=== PATIENT | male | born 1940 | race Caucasian/White ===

== ENCOUNTER → 2018-01-28 06:15 | Outpatient (CLI) | payer MEDICARE, SELFPAY ==
--- NOTE | 2018-01-28 09:39 | STRESSREP ---
Stress Test Report Exercise myocardial perfusion stress test. 78-year-old man with a history of syncope. Medications: Norvasc Flomax lisinopril. Stress protocol: Resting EKG demonstrates sinus rhythm with a rate of 62 bpm incomplete right bundle branch block is noted as well as premature ventricular complexes. The patient exercised according to the regular Kirk protocol for total duration of 6 minutes. The patient completed stage II of the Kirk protocol the maximum heart rate attained was 137 bpm which was 97% of maximum predicted heart rate the maximum workload attained was 7 metabolic equivalents. Patient maintained sinus rhythm throughout the recording. The resting blood pressure is 120/60 mmHg with a peak blood pressure 146/60 mmHg rate pressure product was 20,000. No clinical angina was noted the test was terminated due to shortness of breath. Myocardial perfusion protocol. 11.3 mCi of technetium 99m sestamibi was injected at rest. The patient exercised according to the Kirk protocol for 6 minutes and at peak exercise 33.4 mCi of technetium 99m sestamibi was injected stress images were obtained stress and rest images were reconstructed and compared in the short axis vertical long and horizontal long axis. Gated images were also obtained. Perfusion SPECT analysis: Review of the stress images demonstrate GI attenuation artifact noted. The anterior septal wall, anterior wall and lateral wall appear to be well perfused. There is a perfusion defect noted involving the inferior wall but there is also significant GI attenuation artifact noted. The stress and resting images do not demonstrate any differential to suggest ischemia. A previous inferior infarct cannot be completely excluded. Gated SPECT analysis: The gated ejection fraction is 64%. Conclusion: Exercise myocardial perfusion stress test with no evidence of ischemia. Previous inferior infarct cannot be excluded.
== END ==
PROVIDERS: Family Provider Family Medicine; PCP Family Medicine; Visit Provider Internal Medicine Cardiovascular Disease
DX: I25.10 Atherosclerotic heart disease of native coronary artery without angina pectoris (principal); I49.3 Ventricular premature depolarization; R55 Syncope and collapse
CPT/HCPCS: 78452; 93017; A9500; A4216

== ENCOUNTER → 2018-06-11 11:17 | Outpatient (CLI) | payer MEDICARE, SELFPAY ==
[2018-06-11 11:47] LABS: Absolute Lymphocyte Count 2.65 X10^3/ul (0.83-4.51); Absolute Neutrophil Count 2.4 X10^3/uL (2.0-7.7); Basophil# 0.02 X10^3/uL; Basophil% 0.4 % (0-1); Eosinophil# 0.07 X10^3/uL; Eosinophils% 1.2 % (0-5); Hemoglobin 10.7 g/dl (13.0-16.5); Lymphocyte # 2.65 X10^3/ul (4.0); Lymphocyte % 46.8 % (19-41); Mean Corp Hgb Conc 32.4 g/gl (32-36); Mean Corpuscular Hgb 29.5 pg (27.0-32.0); Mean Corpuscular Volume 90.9 fL (80-94); Mean Platelet Vol. 9.6 fl (6.2-12.0); Monocyte# 0.47 X10^3/uL; Monocyte% 8.3 % (0-10); Neutrophil # 2.44 X10^3/uL (2.7-7.7); Neutrophil % 43.1 % (47-70); POSITIVE COUNT NO; POSITIVE DIFFERENTIAL NO; POSITIVE MORPHOLOGY NO; Platelet Count 141 K/mm3 (150-450); RBC Distribution Width SD 42.1 fl (35.1-43.9); Red Blood Count 3.63 M/mm3 (4.6-6.2); White Blood Count 5.7 K/mm3 (4.4-11.0)
== END ==
PROVIDERS: PCP Family Medicine; Visit Provider Internal Medicine Hematology & Oncology
DX: D50.9 Iron deficiency anemia, unspecified (principal)
CPT/HCPCS: 85025

== ENCOUNTER 2020-11-10 12:17 | Emergency (ER) | payer MEDICARE, SELFPAY ==
[2020-11-10 12:18] VITALS: BP 157/66; PULSE 80; RESP 18; TEMP 36.7; O2SAT 98; BMI 21.2
--- NOTE | 2020-11-10 12:51 | CT_ITS ---
STUDY: CT ABDOMEN AND PELVIS WITHOUT CONTRAST REASON FOR EXAM: Male, 80 years old. Haematuria. Constipation. The patient has a history of lymphoblastic lymphoma. RADIATION DOSAGE (If Supplied By Facility): CTDIvol = ( 7.59 ) mGy, DLP = ( 365.85 ) mGycm TECHNIQUE: Transaxial images were obtained from the dome of the diaphragm to the symphysis pubis without oral contrast, and without intravenous contrast. Sagittal and coronal images were reconstructed. Individualized dose optimization techniques were used for this CT. COMPARISON: None. FINDINGS: Small bilateral pleural effusions. Coronary artery calcification. There is 1.8 cm cyst in the posterior aspect of the right lobe of the liver. Adjacent to this, there is a similar appearing 2 cm cyst in the peripheral inferior aspect of the right lobe of the liver. The patient is status post cholecystectomy. Normal spleen. Normal pancreas. Normal bilateral adrenal glands. Normal right kidney. 2.7 cm cyst in the lower pole of the left kidney. Normal visualized stomach. Normal small intestine. Moderate amount of fecal material is seen in the colon. The appendix is visualized and appears normal. There is diffuse atherosclerotic calcification of the abdominal aorta and its major visceral branches, without a demonstrated aneurysm. Normal inferior vena cava. Normal retroperitoneum. The urinary bladder is distended. Mild degree of diffuse bladder wall thickening. There is enlargement of the prostate gland. The prostate measures 5.3 cm x 6.2 cm. This causes indentation at the bladder base. Questionable 2.7 cm x 2.9 cm polypoid mass at the base of the bladder. There is a left-sided inguinal hernia containing adipose tissue. There are degenerative changes of the visualized lumbar spine. Almost complete collapse of the L3 vertebrae. CT/Abdomen/Pelvis without Cont IMPRESSION: Prostatic enlargement with indentation at the bladder base. Impression 1 polypoid lesion at the base of the bladder. Hepatic cysts. Electronically Signed: Lamont Conde MD at 13:41 EDT , Service support ,
--- NOTE | 2020-11-10 12:55 | ED.DCSUM_ITS ---
History of Present Illness Chief Complaint: Constipation Detail of Chief Complaint: Constipation and hematuria Informant: Patient Onset: Days Context: Gradual Onset Narrative: Patient reported has not had a bowel movement in the last 7 or 8 days. He was seen by Dr. Maloney earlier this week and mentioned his constipation. He was given suppositories and a prescription for magnesium citrate. It appears the patient took the Dulcolax suppositories and tried milk of magnesia without improvement. Yesterday he noted some gross hematuria although denies dysuria. Patient was seen at the office where urinalysis did not show sign of infection. Because symptoms persisted today patient was sent to the emergency room. Patient states he has been passing gas. He denies any prior abdominal surgeries. He is currently on Xarelto for paroxysmal A. fib but states he held his dose last night because of hematuria. - Past Medical History (1) Lymphoblastic lymphoma Status: Chronic (2) Atrial fibrillation Status: Chronic Past Medical History - Allergies and Home Meds Allergies/Adverse Reactions: Allergies morphine Adverse Reaction (Verified 11/10/20 12:21) Other anxiety Primary Care Physician: Lenny Vail MD [Primary Care Provider] - Prior records reviewed: Yes Smoking Status: Never smoker Review of Systems General: Denies: Chills, Fever Eyes: Denies: Visual changes - bilaterally ENT: Denies: Bilateral ear pain Cardiovascular: Denies: Chest pain Respiratory: Denies: Dyspnea, Cough Gastrointestinal: Reports: Constipation. Denies: Abdominal pain, Vomiting Genitourinary: Reports: Hematuria. Denies: Dysuria Musculoskeletal: Denies: Swelling, Extremity Pain Skin: Denies: Rash Neurological: Denies: Headache Hematologic: Denies: Easy bruising, Easy bleeding Allergy: Denies: Uticaria Physical Exam Vital Signs/Narrative: Vital Signs Temp Pulse Resp BP Pulse Ox 11/10/20 12:18 98.0 F 80 18 157/66 H 98 Inital Vital Signs reviewed: Yes General: Well nourished, Well developed Head: Normocephalic Neck: Supple Cardiovascular: Regular rate, Regular rhythm Respiratory: No distress, CTA bilaterally Abdomen: Soft, Nontender, Hypoactive bowel sounds Extremities: Nontender Skin: Normal color Neurological: Alert, Oriented x3 Psychological: Normal affect Diagnostic/Tx/Re-eval Impressions Abdomen/Pelvis CT 11/10/20 12:51 IMPRESSION: Prostatic enlargement with indentation at the bladder base. Impression 1 polypoid lesion at the base of the bladder. Hepatic cysts. Electronically Signed: Lamont Conde MD at 13:41 EDT , Service support , 11/10/20 12:51 Abdomen/Pelvis without Cont [CT] Stat Laboratory Results 11/10/20 11/10/20 11/10/20 13:05 13:05 13:05 WBC 2.6 L RBC 3.63 L Hgb 10.2 L Hct 33.0 L MCV 90.9 MCH 28.1 MCHC 30.9 L RDW Std Deviation 49.8 H RDW Coeff of Reba 14.9 H Plt Count 217 MPV 9.2 Immature Gran % (Auto) 1.600 H Neut % (Auto) 68.1 Lymph % (Auto) 22.1 [place] % (Auto) 5.8 Eos % (Auto) 1.2 Baso % (Auto) 1.2 H Absolute Neuts (auto) 1.8 L Absolute Lymphs (auto) 0.57 L Nucleated RBC % 0 Differential Comment S Diff Path Review May foll PT 13.1 INR 1.1 APTT 29.6 Sodium 133 L Potassium 3.7 Chloride 101 Carbon Dioxide 26.0 Anion Gap 6 BUN 21 H Creatinine 1.01 Estim Creat Clear Calc 54.47 Est GFR (MDRD) Af Amer 91 Est GFR (MDRD) Non-Af 75 BUN/Creatinine Ratio 20.8 H Glucose 86 Calcium 8.7 Urine Color Urine Clarity Urine pH Ur Specific [place] Urine Protein Urine Glucose (UA) Urine Ketones Urine Occult Blood Urine Nitrite Urine Bilirubin Urine Urobilinogen Ur Leukocyte Esterase Urine RBC Urine WBC Ur Squamous Epith Cells Urine Bacteria Urine Mucus 11/10/20 13:40 WBC RBC Hgb Hct MCV MCH MCHC RDW Std Deviation RDW Coeff of Reba Plt Count MPV Immature Gran % (Auto) Neut % (Auto) Lymph % (Auto) [place] % (Auto) Eos % (Auto) Baso % (Auto) Absolute Neuts (auto) Absolute Lymphs (auto) Nucleated RBC % Differential Comment Diff Path Review PT INR APTT Sodium Potassium Chloride Carbon Dioxide Anion Gap BUN Creatinine Estim Creat Clear Calc Est GFR (MDRD) Af Amer Est GFR (MDRD) Non-Af BUN/Creatinine Ratio Glucose Calcium Urine Color [place] Urine Clarity Cloudy Urine pH 7.0 Ur Specific [place] 1.010 Urine Protein 30 H Urine Glucose (UA) Normal Urine Ketones 50 H Urine Occult Blood 250 H Urine Nitrite Negative Urine Bilirubin Negative Urine Urobilinogen Normal Ur Leukocyte Esterase 25 H Urine RBC > 100 SEEN Urine WBC 0-5 SEEN Ur Squamous Epith Cells 0-5 SEEN Urine Bacteria RARE Urine Mucus 0 SEEN - Medical Decision Making Test results discussed with patient at bedside. I spoke with Dr. Fisher, on- call for urology. He reviewed the patient's CT scan and feels that the questionable mass on the CT read is actually the prostate pushing up into the bladder. He asked the patient be started on finasteride and hold his Xarelto until he does not note any more hematuria. Patient will also be written for magnesium citrate to clear the stool noted in his abdomen. Stool does appear to be fairly high and I do not think a enema will be beneficial. ED Disposition - Plan for ED Patient: Disposition: Home or Assisted Living Diagnosis: Hematuria, Constipation Instructions: ED Constipation (Adult), ED Hematuria Prescriptions: Magnesium Citrate [Citrate Of Magnesia] 150 ml PO Q4H PRN PRN #1 bottle PRN Reason: Constipation Transmission Status: Pending to [facility] Finasteride 5 mg PO DAILY #30 tablet Transmission Status: Pending to [facility] Referrals: Lenny Vail MD [Primary Care Provider] - Ahmet Fisher MD [STAFF PHYSICIAN] - 1 Week
[2020-11-10 13:18] LABS: Absolute Lymphocyte Count 0.57 X10^3/uL (0.83-4.51); Absolute Neutrophil Count 1.8 X10^3/uL (2.0-7.7); Basophil# 0.03 X10^3/uL; Basophil% 1.2 % (0-1); Eosinophil# 0.03 X10^3/uL; Eosinophils% 1.2 % (0-5); Hemoglobin 10.2 g/dL (13.0-16.5); Lymphocyte # 0.57 X10^3/ul (0.83-4.51); Lymphocyte % 22.1 % (19-41); Mean Corp Hgb Conc 30.9 g/dL (32-36); Mean Corpuscular Hgb 28.1 pg (27.0-32.0); Mean Corpuscular Volume 90.9 fL (80-94); Mean Platelet Vol. 9.2 fl (6.2-12.0); Monocyte# 0.15 X10^3/uL; Monocyte% 5.8 % (0-10); NRBC Flagged by Analyzer 0 % (0-5); Neutrophil # 1.76 X10^3/uL (2.7-7.7); Neutrophil % 68.1 % (47-70); POSITIVE DIFFERENTIAL YES; Platelet Count 217 K/mm3 (150-450); RBC Distribution Width CV 14.9 % (11.6-14.6); RBC Distribution Width SD 49.8 fl (35.1-43.9); Red Blood Count 3.63 M/mm3 (4.6-6.2); White Blood Count 2.6 K/mm3 (4.4-11.0)
[2020-11-10 13:19] LABS: Differential Indicated SCAN CRITERIA MET
[2020-11-10 13:27] LABS: International Normalized Ratio 1.1; Prothrombin Time (Protime)PT. 13.1 SECONDS (11.7-14.9)
[2020-11-10 13:28] LABS: Partial Thromboplast Time 29.6 Seconds (24.1-36.2)
[2020-11-10 13:36] LABS: Anion Gap 6 (5-15); BUN 21 mg/dL (7-18); BUN/Creat Ratio 20.8 RATIO (10-20); Calcium,Total 8.7 mg/dL (8.5-10.1); Chloride 101 mmol/L (98-107); Creatinine, Serum 1.01 mg/dL (0.70-1.30); EST Glomerular Filtration Rate 75 mL/min (>60); Est Glom Filt Rate - Afr Amer 91 mL/min (>60); Estimated Creatinine Clearance 54.47 ml/min; Glucose 86 mg/dL (74-106); Potassium 3.7 mmol/L (3.5-5.1); Sodium Level 133 mmol/L (136-145)
[2020-11-10 13:43] LABS: Mucous, Urine 0 SEEN /hpf (<or=2+)
[2020-11-10 13:49] LABS: Color, Urine Amber (Yellow); Glucose, Dipstick Normal (Normal); Ketone-Dipstick 50 mg/dl (Negative); Leukocyte Esterase-Dipstick 25 /ul (Negative); Nitrite-Dipstick Negative (Negative); Occult Blood-Urine 250 /ul (Negative); Protein-Dipstick 30 mg/dl (Negative); Urine Bilirubin Dipstick Negative (Negative); Urine Clarity Cloudy (Clear); Urine Urobilinogen Normal (Normal)
[2020-11-10 13:49] LABS: Differential Comment S
[2020-11-10 13:52] LABS: Red Blood Cells-Urine > 100 SEEN /hpf (0-5); Squamous Epithelial Cells - UA 0-5 SEEN /hpf (0-5); White Blood Cells 0-5 SEEN /hpf (0-5)
[2020-11-10 13:53] LABS: Bacteria RARE /hpf (None Seen)
[2020-11-11 14:06] LABS: Pathologist Review Reviewed
== END 2020-11-10 14:46 | disposition home or self-care (01) ==
PROVIDERS: Emergency Provider Emergency Medicine; PCP Family Medicine
DX: R31.9 Hematuria, unspecified (principal); K59.00 Constipation, unspecified; I48.0 Paroxysmal atrial fibrillation; C83.50 Lymphoblastic (diffuse) lymphoma, unspecified site; Z79.01 Long term (current) use of anticoagulants; Z79.899 Other long term (current) drug therapy
CPT/HCPCS: 74176; 80048; 81001; 85025; 85610; 85730; 99283; A4216

== ENCOUNTER → 2021-05-02 | Outpatient (CLI) | payer MEDICARE, SELFPAY ==
--- NOTE | 2021-05-02 10:30 | LES_PTH ---
PATIENT: ALVARO TSANG LOC: [facility] U#:[id number] AGE/SX: 81/M ROOM: RE05/02/[address]: Dr. Aniket Castillo MD : [id number] BED: DIS: 05/02/2021 SPEC #: [id number] RECD: 05/02/21 15:07 STATUS: ANTONIETA REMan #: [id number] LAM: 05/02/21 10:[address]: Aniket Castillo DEPT: SURGICAL PATHOLOGY RECD BY: Alfreda Melendez ENTERED: 05/03/21 08:46 SP TYPE: Lesion OTHR DR: Dr. Lenny Vail MD Tissues: Skin of external ear, NOS Procedures: Surgery Specimen Level IV HEADER OPERATION: Right ear biopsy PRE-OP DIAGNOSIS: Cholesteatoma right ear TISSUE SUBMITTED: Right ear biopsy MICROSCOPIC DIAGNOSIS Right ear, biopsy: A piece of fibroconnective tissue with acute inflammation. See comment. SJ:fiordaliza 05/04/2021 COMMENT Changes consistent with cholesteatoma are not seen. Clinical correlation and appropriate follow up are necessary. MICROSCOPIC DESCRIPTION Slides are reviewed. GROSS DESCRIPTION Received in fixative is one container labeled with the patient's name and designated right ear biopsy. The specimen consists of a piece of jason soft tissue measuring 0.7 x 0.4 x 0.1 cm. The specimen bisected and submitted entirely in one cassette. / ZOYA:fiordaliza 05/03/21 TC:2 CPT: 72932
== END | disposition home or self-care (01) ==
LOC: LABSPEC 15:52
PROVIDERS: PCP Family Medicine; Referring Provider Otolaryngology Otolaryngology/Facial Plastic Surgery; Visit Provider Otolaryngology Otolaryngology/Facial Plastic Surgery
DX: H71.91 Unspecified cholesteatoma, right ear (principal)
CPT/HCPCS: 88305

== ENCOUNTER → 2021-05-09 14:01 | Outpatient (CLI) | payer MEDICARE, SELFPAY ==
--- NOTE | 2021-05-09 14:03 | CT_ITS ---
INDICATION: CHOLESTEATOMA RT MASTOID EXAMINATION: CT IAC TEMPORAL BONES - CT IACs W/O Contrast Injection TECHNIQUE:Routine noncontrast CT protocol was performed of the internal auditory canals and temporal bones. 2-D reformats were performed by the technologist. A radiation dose optimization technique was used for this scan. IV Contrast dosage and agent: None. COMPARISON: None. FINDINGS: RIGHT SIDE: No fracture. SUPERFICIAL SOFT TISSUES: Unremarkable. MASTOID AIR CELLS: Partial opacification of the inferior mastoid air cells. EXTERNAL AUDITORY CANALS: Soft tissue density is seen within the external auditory canal extending into the tympanic membrane. Minimal soft tissue is also seen in the roof of the attic of the middle ear with involvement of the internal ossicles. MIDDLE EAR CAVITIES: Well aerated. Ossicles and scutum intact. INTERNAL AUDITORY CANALS: Unremarkable bilateral internal auditory canals. No osseous erosion or widening of the canal. INNER EAR: Unremarkable cochlea, vestibule and semicircular canals. LEFT SIDE: No fracture. SUPERFICIAL SOFT TISSUES: Unremarkable. MASTOID AIR CELLS: Well aerated, unremarkable. EXTERNAL AUDITORY CANALS: Clear. MIDDLE EAR CAVITIES: Well aerated. Ossicles and scutum intact. INTERNAL AUDITORY CANALS: Unremarkable bilateral internal auditory canals. No osseous erosion or widening of the canal. INNER EAR: Unremarkable cochlea, vestibule and semicircular canals. VISUALIZED BRAIN AND POSTERIOR FOSSA: Cerebello-pontine angles are unremarkable. CT/Orb Sella Post Fossa Ear w/o IMPRESSION: Soft tissue density in the right external auditory canal extending into the region of the tympanic membrane and the attic of the right middle ear canal with involvement of the ossicles. Partial opacification of the right mastoid air cells. Electronically Signed: Lamont Conde MD at 15:16 EDT , Service support ,
== END ==
PROVIDERS: PCP Family Medicine; Referring Provider Otolaryngology Otolaryngology/Facial Plastic Surgery; Visit Provider Otolaryngology Otolaryngology/Facial Plastic Surgery
DX: H71.21 Cholesteatoma of mastoid, right ear (principal)
CPT/HCPCS: 70480

== ENCOUNTER 2021-09-22 17:52 | Emergency (ER) | payer MEDICARE, SELFPAY ==
[2021-09-22] VITALS (8 sets, daily range): BP systolic 111–149; BP diastolic 79–123; PULSE 123–152; RESP 17–24; TEMP 36.1–36.9; O2SAT 94–100; BMI 19.5
--- NOTE | 2021-09-22 17:57 | CT_ITS ---
STUDY: CT CERVICAL SPINE WITHOUT CONTRAST REASON FOR EXAM: Male, 81 years old. fall, head injury RADIATION DOSAGE (If Supplied By Facility): CTDIvol = ( 12.16 ) mGy, DLP = ( 252.71 ) mGycm TECHNIQUE: High resolution transaxial imaging was performed without contrast material. Sagittal and coronal images were reconstructed. Individualized dose optimization techniques were used for this CT. COMPARISON: None FINDINGS: Normal craniovertebral junction. Normal anterior atlantoaxial articulation. Normal odontoid process. Normal cervical lordosis. Normal vertebral bodies and posterior osseous elements. C2-3: Normal endplates. Normal disc height and tiny central disc protrusion.. Normal central canal and intervertebral neuroforamina. C3-4: Normal endplates. Normal disc height and morphology. Normal central canal and mild bilateral neuroforaminal stenosis secondary to bony hypertrophy. C4-5: Normal endplates. Normal disc height and morphology. Normal central canal. Moderate bilateral neuroforaminal stenosis secondary to bony hypertrophy C5-6: Narrowed disc space and endplate spurring. Normal central canal. Severe left neuroforaminal stenosis and mild narrowing on the right secondary to bony hypertrophy.. C6-7: Narrowed disc space and endplate spurring. Normal central canal. Severe bilateral neuroforaminal stenosis secondary to bony hypertrophy C7-T1: Normal endplates. Normal disc height and morphology. Normal central canal and intervertebral neuroforamina. Normal visualized soft tissue structures. CT/Spine Cervical without Contras IMPRESSION: No evidence for acute fracture or subluxation. Moderate spondylosis most severe at C5-6 and C6-7. Electronically Signed: Gilberto Bunch MD at 18:38 EST ,
--- NOTE | 2021-09-22 17:58 | CT_ITS ---
STUDY: CT BRAIN WITHOUT CONTRAST REASON FOR EXAM: Male, 81 years old. head truama RADIATION DOSAGE (If Supplied By Facility): CTDIvol = ( 44.99 ) mGy, DLP = ( 880.47 ) mGycm TECHNIQUE: Transaxial CT imaging of the brain was performed without administration of intravenous contrast material. Individualized dose optimization techniques were used for this CT. COMPARISON: No relevant priors. FINDINGS: Normal soft tissue structures. Normal calvarium. Mild atrophy and periventricular white matter ischemic changes.. Normal basal ganglia and thalami. Normal brainstem. Normal cerebellum. There is a large acute parenchymal hematoma in the left temporal and frontal lobes measuring approximately 5.4 x 5.5 cm in association with acute subarachnoid and intraventricular hemorrhage.. There is mass effect upon the left lateral ventricle approximately 6 mm left to right midline shift and mild dilatation of the right lateral ventricle. There is also very mild impingement upon the left ventral brainstem There are no findings of an acute ischemic infarction. Postoperative changes of the orbits. Large mucous retention cyst in left maxillary sinus. Mild mucosal thickening right maxillary and bilateral ethmoid sinuses. CT/Brain/Head without Contrast IMPRESSION: Large acute left frontal temporal parenchymal hematoma producing left to right midline shift and dilatation of right lateral ventricle as well as mild impingement upon the brainstem.. There is associated subarachnoid hemorrhage and intra-ventricular extension Electronically Signed: Gilberto Bunch MD at 18:36 EST ,
--- NOTE | 2021-09-22 17:59 | EKG12_ITS ---
Test Reason : UNRESPONSIVE Blood Pressure : / mmHG Vent. Rate : 130 BPM Atrial Rate : 130 BPM P-R Int : 184 ms QRS Dur : 132 ms QT Int : 354 ms P-R-T Axes : 038 -87 092 degrees QTc Int : 520 ms Sinus tachycardia with Premature supraventricular complexes and with occasional Premature ventricular complexes Left axis deviation Right bundle branch block Inferior infarct , age undetermined Abnormal ECG Confirmed by GUMARO PHILLIPS, HANK ([id number]), supervising editor news reel LUCIA DUARTE ([id number]) on 09/23/2021 9:18:15 AM Referred By: LANDEN Confirmed By:HANK NAIK MD
[2021-09-22] MEDS: 0.9% Normal Saline 1,000 ML 999 ML IV (18:00)
--- NOTE | 2021-09-22 18:00 | EDS_ITS ---
HPI History of Present Illness Chief Complaint: Unresponsive Informant: EMS Narrative Narrative: Patient is an 81-year-old male with history of atrial fibrillation on Xarelto, history of sarcoma and chronic lymphoblastic lymphoma presenting via EMS for unresponsive state. Patient was found down by a neighbor who last saw him 3 days ago. EMS states look like he been down for a while. Patient is unresponsive and not contribute to the history. EMS noted there was blood on the ground around him but are not sure where it was coming from. EMS reports that the only next of kin are in [place]. [facility] Medical History (Updated 09/22/21 @ 22:[address] Robyn Carreon DO) BPH (benign prostatic hyperplasia) Chemotherapy induced neutropenia Elevated PSA History of sarcoma Hyperlipidemia Hypertension Iron deficiency anemia Malignant lymphoplasmacytic lymphoma Nocturia Paroxysmal atrial fibrillation Prostate nodule Prostatitis Home Medications Tamsulosin Hcl 1 tablet PO DAILY 11/10/20 [History Last Taken Unknown] amlodipine 5 mg PO BID 11/10/20 [History Last Taken Unknown] bisacodyl 10 mg RC DAILY 11/10/20 [History Last Taken Unknown] finasteride 5 mg PO DAILY #30 tablet 11/10/20 [Rx Last Taken Unknown] ibrutinib 1 tablet PO DAILY 11/10/20 [History Last Taken Unknown] lisinopril 40 mg PO DAILY 11/10/20 [History Last Taken Unknown] magnesium citrate 150 ml PO Q4H PRN PRN #1 bottle 11/10/20 [Rx Last Taken Unknown] hydrocortisone applic TOPICAL 09/22/21 [History Last Taken Unknown] potassium chloride meq PO 09/22/21 [History Last Taken Unknown] rivaroxaban [Xarelto] 20 mg PO DAILY 09/22/21 [History Last Taken Unknown] tamsulosin mg PO 09/22/21 [History Last Taken Unknown] Allergy/AdvReac Type Severity Reaction Status Date / Time morphine AdvReac Other Verified 09/22/21 17:53 Social History Smoking Status: Never smoker ROS ROS ED Review of Systems ROS Unobtainable: due to encephalopathy EXAM Physical Exam Const Vital Signs: 09/22/21 17:53 09/22/21 18:10 09/22/21 18:24 Temperature 97.0 F L 98.4 F Temperature Source Temporal Core Pulse Rate 132 H 152 H Respiratory Rate 20 H 24 H Respiratory Effort Normal Respiratory Depth Normal Respiratory Pattern Normal Blood Pressure 142/123 H 149/88 H Blood Pressure Mean 129 108 Pulse Ox 94 98 Oxygen Delivery Method Room Air Room Air Room Air 09/22/21 18:49 09/22/21 18:52 09/22/21 19:00 Temperature Temperature Source Pulse Rate 124 H 134 H Respiratory Rate 24 H 20 H Respiratory Effort Respiratory Depth Respiratory Pattern Blood Pressure 125/110 H 140/79 H Blood Pressure Mean 115 99 Pulse Ox 99 99 99 Oxygen Delivery Method Room Air Room Air Room Air 09/22/21 19:45 09/22/21 20:41 09/22/21 21:19 Temperature Temperature Source Pulse Rate 128 H 137 H 123 H Respiratory Rate 21 H 17 21 H Respiratory Effort Respiratory Depth Respiratory Pattern Blood Pressure 111/81 H 146/114 H 133/86 H Blood Pressure Mean 91 124 101 Pulse Ox 99 99 100 Oxygen Delivery Method Room Air Room Air Room Air Acute distress Positive well nourished and unkempt General Appearance ED: unkempt HEENT Reports dry mucous membranes HEENT Narrative: Patient has ecchymosis to the anterior right ear. Not able to adequately visualize the right tympanic membrane. Left panic membrane is normal. There is dried blood around the right external ear. trauma Mouth ED: Yes dry mucous membranes Mouth: dry mucous membranes Eyes Eyes Narrative: Dilated left pupil. Both pupils are nonreactive. Neck supple Neck Narrative: No obvious deformity. Resp Resp Narrative: Tachypnea, coarse breath sounds throughout Cardio no murmurs Rate: tachycardic GI normal to inspection, nondistended, normoactive bowel sounds Extremity Extremity Narrative: Surgically absent right upper extremity. Neuro Neuro Narrative: Patient has no spontaneous movements. GCS is 3 Psych Appearance: unkempt Skin Skin Narrative: Pressure wounds on right buddhist, right ear, right chest and scabbed over right lower extremity. Abrasion to left foot MDM MDM MDM Narrative Medical decision making narrative: Patient evaluated after he was found down at his home. Lasting 3 days ago. Found by a neighbor. Patient is found to have large intraparenchymal head bleed with shift. He is on Xarelto. Case is immediately discussed with neurosurgery on-call, Dr. Winston Whitney, at [facility]. After extensive discussion of the case he feels that the further intervention would be futile and patient is nonoperative candidate. Patient has 97% chance of within the next 30 days. I am in agreement with this given the patient's clinical picture and comorbidities. Because of this patient is not given reversal for his Xarelto. A palliative medicine consult is obtained. I will make the patient DNR CC. Patient only has 1 next of kin in [place]. Social work is contacted to see if we can try to get a hold of her. She is called however the phone number seems to be disconnected. EMS is attempting to get the patient's phone. Hospice states that as there is no one that can sign consent. Patient next of kin, his niece in [place], Leigh Ann Lu, was able to be contacted. She is agreeable with this plan of care. Will arrange for hospice transfer for the patient. DNRCC paperwork filled out by myself. Lab Data Attestation: I reviewed the patient's lab results. Labs: Laboratory Results - last 24 hr 09/22/21 09/22/21 09/22/21 18:00 18:00 18:00 WBC 12.0 H RBC 4.24 L Hgb 12.7 L Hct 37.3 L MCV 88.0 MCH 30.0 MCHC 34.0 RDW Std Deviation 47.3 H RDW Coeff of Reba 14.6 Plt Count 254 MPV 9.3 Immature Gran % (Auto) 0.800 Neut % (Auto) 91.0 H Lymph % (Auto) 2.2 L Dewitt % (Auto) 6.0 Eos % (Auto) 0.0 Baso % (Auto) 0.0 Absolute Neuts (auto) 10.9 H Absolute Lymphs (auto) 0.26 L Nucleated RBC % 0 Differential Comment SCANNED PT 14.5 INR 1.2 Lactic Acid Troponin I High Sens 59 C-React Prot Ext Range 97.50 H Urine Color Urine Clarity Urine pH Ur Specific Chappells Urine Protein Urine Glucose (UA) Urine Ketones Urine Occult Blood Urine Nitrite Urine Bilirubin Urine Urobilinogen Ur Leukocyte Esterase Urine RBC Urine WBC Ur Squamous Epith Cells Urine Bacteria Urine Mucus 09/22/21 09/22/21 18:00 18:14 WBC RBC Hgb Hct MCV MCH MCHC RDW Std Deviation RDW Coeff of Reba Plt Count MPV Immature Gran % (Auto) Neut % (Auto) Lymph % (Auto) Dewitt % (Auto) Eos % (Auto) Baso % (Auto) Absolute Neuts (auto) Absolute Lymphs (auto) Nucleated RBC % Differential Comment PT INR Lactic Acid 1.6 Troponin I High Sens C-React Prot Ext Range Urine Color Yellow Urine Clarity Clear Urine pH 5.0 Ur Specific Chappells 1.020 Urine Protein 100 H Urine Glucose (UA) Normal Urine Ketones 50 H Urine Occult Blood 50 H Urine Nitrite Negative Urine Bilirubin Negative Urine Urobilinogen Normal Ur Leukocyte Esterase Negative Urine RBC 0-5 SEEN Urine WBC 0 SEEN Ur Squamous Epith Cells 0 SEEN Urine Bacteria 0 SEEN Urine Mucus 0 SEEN Radiography Diagnostic Testing: Clinical Impression(s) from Imaging Studies Cervical Spine CT 09/22/21 17:57 IMPRESSION: No evidence for acute fracture or subluxation. Moderate spondylosis most severe at C5-6 and C6-7. Electronically Signed: Gilberto Bunch MD at 18:38 EST , Brain CT 09/22/21 17:58 IMPRESSION: Large acute left frontal temporal parenchymal hematoma producing left to right midline shift and dilatation of right lateral ventricle as well as mild impingement upon the brainstem.. There is associated subarachnoid hemorrhage and intra-ventricular extension Electronically Signed: Gilberto Bunch MD at 18:36 EST , Chest X-Ray 09/22/21 19:15 IMPRESSION: Right basilar infiltrate are effusion. Mild cardiomegaly. Electronically Signed: Jose Myers DO at 20:58 EST , Rhythm Strip Rhythm Strip: Sinus Tach Rate: 130 Ectopy: PVC(s) EKG Initial EKG: Attestation: I personally reviewed and interpreted this EKG as follows: Interpretation: Sinus Tachycardia Critical Care Time Critical Care Time: Yes Critical care time (excluding procedures): 30-74 minutes (45), Discussing w/Patient &/or Family/Financial Compliance Officer, Discussing w/Consultants and Arranging Admission or Transfer Discharge Plan Triage Chief Complaint: Unresponsive ED Provider: Robyn Carreon Dx/Rx/DC Orders Clinical Impression: Intracranial hemorrhage, Chronic anticoagulation, Altered mental state, Tachycardia Prescriptions: No Action amlodipine 5 MG tablet 5 mg PO BID RF: 0 bisacodyl 10 MG suppository 10 mg RC DAILY RF: 0 lisinopril 40 MG tablet 40 mg PO DAILY RF: 0 ibrutinib 420 MG tablet 1 tablet PO DAILY RF: 0 Tamsulosin Hcl 0.4 MG capsule 1 tablet PO DAILY RF: 0 finasteride 5 MG tablet 5 mg PO DAILY Qty: 30 RF: 0 magnesium citrate 300 ML solution 150 ml PO Q4H PRN PRN (Reason: Constipation) Qty: 1 RF: 0 Xarelto 20 mg tablet 20 mg PO DAILY RF: 0 potassium chloride 20 mEq tablet,ER particles/crystals PO RF: 0 tamsulosin 0.4 mg capsule PO RF: 0 hydrocortisone 2.5 % cream TOPICAL RF: 0 Primary Care Provider: Lenny Vail Referrals: Lenny Vail MD [Primary Care Provider] - Disposition Disposition: Hospice in Medical Facility Discharge Location: [facility]
[2021-09-22 18:13] LABS: Absolute Lymphocyte Count 0.26 X10^3/uL (0.83-4.51); Absolute Neutrophil Count 10.9 X10^3/uL (2.0-7.7); Hematocrit 37.3 % (40-54); Hemoglobin 12.7 g/dL (13.0-16.5); Lymphocyte # 0.26 X10^3/ul (0.83-4.51); Lymphocyte % 2.2 % (19-41); Mean Platelet Vol. 9.3 fl (6.2-12.0); Monocyte# 0.72 X10^3/uL; NRBC Flagged by Analyzer 0 % (0-5); Neutrophil # 10.91 X10^3/uL (2.7-7.7); POSITIVE DIFFERENTIAL YES; Platelet Count 254 K/mm3 (150-450); RBC Distribution Width CV 14.6 % (11.6-14.6); RBC Distribution Width SD 47.3 fl (35.1-43.9); Red Blood Count 4.24 M/mm3 (4.6-6.2)
[2021-09-22 18:29] LABS: Differential Indicated SCAN CRITERIA MET
[2021-09-22 18:29] LABS: Bacteria 0 SEEN /hpf (None Seen); Mucous, Urine 0 SEEN /hpf (<or=2+); Squamous Epithelial Cells - UA 0 SEEN /hpf (0-5); White Blood Cells 0 SEEN /hpf (0-5)
[2021-09-22 18:32] LABS: Color, Urine Yellow (Yellow); Glucose, Dipstick Normal (Normal); Ketone-Dipstick 50 mg/dl (Negative); Leukocyte Esterase-Dipstick Negative /ul (Negative); Nitrite-Dipstick Negative (Negative); Occult Blood-Urine 50 /ul (Negative); Protein-Dipstick 100 mg/dl (Negative); Urine Bilirubin Dipstick Negative (Negative); Urine Clarity Clear (Clear); Urine Urobilinogen Normal (Normal)
[2021-09-22 18:32] LABS: International Normalized Ratio 1.2; Prothrombin Time (Protime)PT. 14.5 SECONDS (11.7-14.9); Troponin-I HS 59 pg/mL (3.0-78.0)
[2021-09-22 18:38] LABS: Red Blood Cells-Urine 0-5 SEEN /hpf (0-5)
[2021-09-22 18:43] LABS: Lactic Acid 1.6 mmol/L (0.4-1.9)
[2021-09-22 18:45] LABS: Differential Comment SCANNED
--- NOTE | 2021-09-22 18:58 | ED.RN ---
Nabila from hospice contacted and they are not able to take pt unless we can get ahold of family or get emergency guardianship to sign papers. Niece has not been reachable. no other family listed.
--- NOTE | 2021-09-22 19:12 | CM.ED ---
SHAILESH Note Referral Source: records supervisor Susanne Referral Reason: Patient is unresponsive. No relative or next of Kin noted Susanne, records supervisor, said that patient's next of kin is Leigh Ann Sepulveda [phone]. Staff has been calling but the number stated it is no working number. SHAILESH called [facility]'s Department and they spoke to Mindy. Mindy reports no contact with patient prior to today when patient came to the ED. SHAILESH called [facility] and spoke to Hannah. Hannah stated that there are no consents or POA on file and NO relatives had called in to speak on behalf of the patient. SHAILESH googled patient's sister name, Leigh Ann Sepulveda and there were name of Leigh Ann Sepulveda but no phone number. SW attempted to contact patients Ankita VELEZ and the phone stated not a working number. The PCP's records listed no NOK. Oksana GIRALDO
--- NOTE | 2021-09-22 19:15 | RAD_ITS ---
STUDY: X-RAY CHEST REASON FOR EXAM: Male, 81 years old. AMS TECHNIQUE: Frontal view COMPARISON: None. FINDINGS: The lungs are expanded. Right basilar infiltrate are effusion. Mild cardiomegaly. Normal mediastinum and noah. Normal visualized pulmonary arteries. Calcified aortic arch and descending thoracic aorta. Normal visualized thoracic spine. Status post amputation of the right arm. Nonvisualization of the right clavicle and scapula. Old right rib fractures. There is no demonstrated abnormality of the visualized soft tissue structures of the upper abdomen. RAD/Chest 1 View (Portable) IMPRESSION: Right basilar infiltrate are effusion. Mild cardiomegaly. Electronically Signed: Jose Myers DO at 20:58 EST Reading Location ID and State: [facility] / [place] Tel [phone], Service support ,
--- NOTE | 2021-09-22 19:31 | ED.RN ---
DR. RENEE ON THE PHONE WITH FAMILY MEMBER AT THIS TIME.
--- NOTE | 2021-09-22 19:37 | CM.ED ---
SHAILESH spoke to patient's sister, Carlos. SHAILESH explained that the hospice in [place] is called [facility] and provided Leigh Ann with the phone number of [facility] and requested she call them immediately. Cale, biometric screener, stated that he has updated Hospice. Cale said that the ex called and is in [place] and said that she is comfortable with signing the paperwork. Cale will call Hospice. Plan: Hospice Oksana GIRALDO
--- NOTE | 2021-09-22 20:00 | ED.RN ---
ex called in to check on patient. she found out patient was here via family. lara reyes in [place] . made aware of condition and status hospice made aware of this information
--- NOTE | 2021-09-22 20:01 | ED.RN ---
made contact with wendy at this time. wendy updated on condition and status by Dr. Carreon attempting to reach hospice nurse with information. working phone number given by wendy [phone]
--- NOTE | 2021-09-22 22:16 | NURSING ---
PHYSICIANS ETA 2-3 HRS CALLED AT [phone]. [facility] EAT 20-30 MIN CALLED AT [phone].
--- NOTE | 2021-09-22 22:21 | ED.RN ---
REPORT GIVEN TO YULIA AT HOSPICE.
[2021-09-22] MEDS: LORazepam 2 MG/ML Syringe 0.5 MG IV (22:30)
== END 2021-09-22 22:42 | disposition hospice, inpatient (51) ==
PROVIDERS: Emergency Provider Emergency Medicine; PCP Family Medicine; Visit Provider Emergency Medicine
DX: I62.9 Nontraumatic intracranial hemorrhage, unspecified (principal); C83.00 Small cell B-cell lymphoma, unspecified site; I48.0 Paroxysmal atrial fibrillation; I10 Essential (primary) hypertension; E78.5 Hyperlipidemia, unspecified; N40.0 Benign prostatic hyperplasia without lower urinary tract symptoms; R00.0 Tachycardia, unspecified; Z66 Do not resuscitate; Z79.01 Long term (current) use of anticoagulants; Z79.899 Other long term (current) drug therapy
CPT/HCPCS: 51702; 70450; 71045; 72125; 81001; 83605; 84484; 85025; 85610; 86140; 87040; 87086; 93005; 96361; 96374; 99285; A4216